=== PATIENT | male | born 1960 | race African-American/Black ===

== ENCOUNTER 2020-02-29 14:21 | Emergency (ER) | payer SELFPAY ==
[2020-02-29 15:11] VITALS: BP 141/79
[2020-03-01] MEDS ORDERED: SODIUM CHLORIDE 0.9% 1000 ML 1,000 ML ONE (21:29)
== END 2020-02-29 23:30 | disposition left against medical advice (07) ==
LOC: ED 14:21
DX: R73.9 Hyperglycemia, unspecified (principal); Z53.21 Procedure and treatment not carried out due to patient leaving prior to being seen by health care provider
CPT/HCPCS: 82962; J7030